=== PATIENT | female | born 1970 | race Caucasian/White ===

== ENCOUNTER 2023-10-19 21:38 | Emergency (ER) | payer SELFPAY ==
[2023-10-19 21:39] VITALS: BMI 25.9
[2023-10-19 21:45] VITALS: BP 147/84
[2023-10-19] MEDS: GlucaGen 1 MG IV (22:15)
--- NOTE | 2023-10-19 22:16 | ED.GENMED ---
History of Present Illness
General
Chief Complaint: Throat Problem
Source: patient and family
Exam Limitations: none
Time Seen by Provider: 10/19/23 22:07
Nursing documentation reviewed up to this point in time: agreed with
Travel History
Have you had any contact with someone who has COVID-19?: No
Do you have any symptoms of coronavirus? Fever > 100 degrees, chills, cough, shortness of breath, sore throat, loss of taste or smell, muscle aches, or headache?: No
History of Present Illness
History of Present Illness:
53-year-old female presents emergency department after eating a piece of chicken that is stuck in her throat. She is not able to tolerate liquids or solids. No respiratory distress. She has not had this happen before, but has a history of GERD.
Past History
Past History
ED Past Medical History: Asthma, Fibromyalgia and GERD
ED Past Surgical History: Gynecological (D&C)
Social History
Tobacco: Smoker
Alcohol: None
Personal: Single
Living: with family
Employment: Disabled
Family History
Family History: Other (No significant)
Review of Systems
Review of Systems
Allergies reviewed?: Yes
All Other Systems: Not applicable
Constitutional: Reports no symptoms
EENT: Reports no symptoms
Respiratory: Reports no symptoms
Cardiac: Reports no symptoms
ABD/GI: Reports other (Chicken stuck in throat)
: Reports no symptoms
Musculoskeletal: Reports no symptoms
Skin: Reports no symptoms
Neurological: Reports no symptoms
Endocrine: Reports no symptoms
Hematologic/Lymphatic: Reports no symptoms
Psychiatric: Reports no symptoms
Phy Exam
Physical Exam
Physical Exam:
Physical Exam
General: Appears uncomfortable, afebrile
Neck: supple. no meningeal signs. normal posterior pharynx
Heart: s1/s2 regular rate and rhythm, no murmur. equal radial
pulses.
HEENT: Pupils equal round reactive to light, EOMI
Lungs: no acute respiratory distress. clear bilaterally
Abdomen: normal bowel sounds. not tender. no CVAT
Neuro: alert and oriented. no focal neurological deficits
Skin: no rash
Psychiatric: well kept. interactive and cooperative
Extremities: no edema.
Course
Orders/Labs/Results
Orders:
Orders
10/19/23 21:58
Glucagon [GlucaGen] 1 mg .ROUTE .STK-MED ONE
10/19/23 22:15
Glucagon [GlucaGen] 1 mg IV NOW STA
Vital Signs
Initial and Last Documented VS:
Initial Vital Signs
Temp
98.7 F
10/19/23 21:41
Last Documented Vital Signs
Temp Pulse Resp BP Pulse Ox
98.7 F 92 18 143/96 98
10/19/23 21:41 10/19/23 22:17 10/19/23 22:17 10/19/23 22:19 10/19/23 22:17
MDM/Problems Addressed
Differential Diagnosis Includes:
Impacted esophageal food bolus, reflux
MDM/Problems Addressed:
53-year-old female with impacted esophageal food bolus. Discussed with Dr. Solano, who will see in ED and take to endoscopy lab.
Chronic conditions affecting care: Other (GERD)
Acute Exacerbation and/or Progression of Chronic Illness: Other
*Pulse Oximetry
Patient hypoxic: no
*EKG
Interpreted by ED Provider?: NA
*Harp Maker Interpretation
Rate: Harp Maker- N/A
*Critical Care Note
Total Time (30-74mins, 75-104mins- exclusive of procedures): Not Applicable
Data Reviewed
Further Testing Considered But Not Given:
Endoscopy not indicated, as patient vomited esophageal food bolus
Patient Management
Discussion with other providers: Controller Mechanic (Gastroenterology, Dr. Solano was to come in, but not necessary at this point as patient did vomit the large piece of chicken)
Escalation/DeEscalation of care consider admission/obs:
Admit not indicated
ED Attending Note
-
Portions of this chart may have been created with voice recognition software.� Occasional wrong word or��sound alike� substitutions may have occurred due to the inherent limitations of voice recognition software.
Discharge Plan
Departure
Patient Disposition: Home (Routine Discharge)
Date of Disposition: 10/19/23
Time of Disposition: 22:30
Patient with high blood pressure during this ER visit?: Yes
Condition: Good
Discharge Problem:
Esophageal obstruction due to food impaction
Instructions: Food Obstruction, BLOOD PRESSURE
Prescriptions:
No Action
montelukast 10 MG tablet
10 mg PO HS
albuterol sulfate [Ventolin HFA] 90 MCG/PUFF HFA aerosol inhaler
1 puff inhalation PRN PRN (Reason: sob)
NAPROXEN
1 - 2 tab PO PRN PRN (Reason: pain)
alprazolam 1 MG tablet
1 mg PO Q6HPRN PRN (Reason: anxiety)
hydrocodone-acetaminophen [Vicodin ES] 1 EACH tablet
1 ea PO PRN PRN (Reason: pain)
cyclobenzaprine 10 MG tablet
10 mg PO HSPRN PRN (Reason: pain)
valacyclovir [Valtrex] 1,000 MG tablet
500 mg PO DAILY
trazodone 150 MG tablet
150 mg PO HS
dextroamphetamine-amphetamine [Adderall XR] 30 MG capsule,extended release 24hr
30 mg PO DAILY
Zantac
1 tab PO BID
furosemide 40 MG tablet
20 mg PO DAILY Qty: 5 0RF
cyclobenzaprine 10 MG tablet
10 mg PO TIDPRN PRN (Reason: Spasm) Qty: 12 0RF
sucralfate 1 GM/10 ML suspension
1 gm PO QID Qty: 10 0RF
Referrals:
Yg Solano MD [Active] - Call in 1-3 days for appt
Interventions
Interventions:
*Risk Screen - Suicide Last Done: 10/19/23 21:44
*General Assessment Last Done: 10/19/23 21:44
*Neglect/Abuse Screening Last Done: 10/19/23 21:44
*ED COVID-19 Vaccine History Last Done: 10/19/23 21:44
ED-EENT Assessment Last Done: 10/19/23 22:25
ED- Pulmonary Assessment Last Done: 10/19/23 22:25
[2023-10-19 22:19] VITALS: BP 143/96
== END 2023-10-19 22:46 | disposition home or self-care (01) ==
LOC: EMR 21:38
PROVIDERS: EMERGENCY PHYSICIAN Emergency Medicine; FAMILY PHYSICIAN Nurse Practitioner Family
DX: K22.2 Esophageal obstruction (principal); T17.228A Food in pharynx causing other injury, initial encounter; W44.F3XA Food entering into or through a natural orifice, initial encounter; R03.0 Elevated blood-pressure reading, without diagnosis of hypertension; M79.7 Fibromyalgia; K21.9 Gastro-esophageal reflux disease without esophagitis; J45.909 Unspecified asthma, uncomplicated; G89.29 Other chronic pain; K76.0 Fatty (change of) liver, not elsewhere classified; D64.9 Anemia, unspecified; F17.200 Nicotine dependence, unspecified, uncomplicated
CPT/HCPCS: 99284; 96374; J1610

== ENCOUNTER → 2023-12-14 13:15 | Outpatient (REF) | payer OTHER, SELFPAY | LOC: RAD 13:15 | PROVIDERS: ATTENDING PHYSICIAN Chiropractor | DX: M99.01 Segmental and somatic dysfunction of cervical region (principal); M99.03 Segmental and somatic dysfunction of lumbar region | CPT/HCPCS: 72050; 72110 ==

== ENCOUNTER → 2024-09-05 08:51 | Outpatient (REF) | payer OTHER, SELFPAY | LOC: HWRAD 08:51 | PROVIDERS: ATTENDING PHYSICIAN Physician Assistant | DX: K76.0 Fatty (change of) liver, not elsewhere classified (principal) | CPT/HCPCS: 76700 ==

== ENCOUNTER → 2024-09-16 08:11 | Outpatient (REF) | payer OTHER, SELFPAY | LOC: RAD 08:11 | PROVIDERS: ATTENDING PHYSICIAN Physician Assistant | DX: R10.11 Right upper quadrant pain (principal) | CPT/HCPCS: 74177; Q9967 ==

== ENCOUNTER → 2024-10-01 12:44 | Outpatient (REF) | payer OTHER, SELFPAY | LOC: HWWDC 12:44 | PROVIDERS: ATTENDING PHYSICIAN Physician Assistant | DX: Z12.31 Encounter for screening mammogram for malignant neoplasm of breast (principal) | CPT/HCPCS: 77063; 77067 ==

== ENCOUNTER 2024-10-03 06:34 | Day surgery (SDC) | payer OTHER, SELFPAY | END 2024-10-03 12:00 | LOC: GI 06:34 | PROVIDERS: ATTENDING PHYSICIAN Student in an Organized Health Care Education/Training Program; FAMILY PHYSICIAN Physician Assistant | DX: R10.13 Epigastric pain (principal); R10.11 Right upper quadrant pain; K44.9 Diaphragmatic hernia without obstruction or gangrene; K29.50 Unspecified chronic gastritis without bleeding; K22.70 Barrett's esophagus without dysplasia | CPT/HCPCS: 43239; 88305; 88342 ==

== ENCOUNTER → 2024-10-07 09:15 | Outpatient (REF) | payer OTHER, SELFPAY | LOC: WDC 09:15 | PROVIDERS: ATTENDING PHYSICIAN Physician Assistant | DX: R92.8 Other abnormal and inconclusive findings on diagnostic imaging of breast (principal) | CPT/HCPCS: 76642 ==

== ENCOUNTER → 2024-10-30 10:10 | Outpatient (REF) | payer OTHER, SELFPAY | LOC: PAVMRI 10:10 | PROVIDERS: ATTENDING PHYSICIAN Student in an Organized Health Care Education/Training Program; FAMILY PHYSICIAN Physician Assistant | DX: K86.9 Disease of pancreas, unspecified (principal) | CPT/HCPCS: 74183; A9575 ==

== ENCOUNTER 2024-11-03 06:23 | Day surgery (SDC) | payer OTHER, SELFPAY | END 2024-11-03 14:25 | disposition home or self-care (01) | LOC: GI 06:23 | PROVIDERS: ATTENDING PHYSICIAN Student in an Organized Health Care Education/Training Program | DX: Z12.11 Encounter for screening for malignant neoplasm of colon (principal); K64.0 First degree hemorrhoids; K57.30 Diverticulosis of large intestine without perforation or abscess without bleeding; D12.4 Benign neoplasm of descending colon; K62.1 Rectal polyp; K63.5 Polyp of colon; Z83.719 Family history of colon polyps, unspecified | CPT/HCPCS: 45385; 45380; 88305 ==

== ENCOUNTER 2025-03-17 06:29 | Day surgery (SDC) | payer OTHER, SELFPAY | END 2025-03-17 07:47 | disposition home or self-care (01) | LOC: GI 06:29 | PROVIDERS: ATTENDING PHYSICIAN Student in an Organized Health Care Education/Training Program; FAMILY PHYSICIAN Physician Assistant | DX: R10.9 Unspecified abdominal pain (principal); K57.30 Diverticulosis of large intestine without perforation or abscess without bleeding; K64.0 First degree hemorrhoids; D12.2 Benign neoplasm of ascending colon; D12.3 Benign neoplasm of transverse colon; K62.1 Rectal polyp; K63.5 Polyp of colon; Z98.890 Other specified postprocedural states | CPT/HCPCS: 45385; 45380; 88305 ==

== ENCOUNTER 2025-07-26 16:09 | Emergency (ER) | payer OTHER, SELFPAY ==
[2025-07-26 16:19] VITALS: BP 135/94
--- NOTE | 2025-07-26 16:24 | ED.GENMED ---
History of Present Illness
General
Chief Complaint: Crisis Evaluation
Source: patient
Exam Limitations: none
Time Seen by Provider: 07/26/25 16:16
History of Present Illness
History of Present Illness:
See MDM
Past History
Past History
ED Past Medical History: Asthma, Fibromyalgia, GERD and Psychiatric
ED Past Surgical History: Gynecological (D&C)
Social History
Tobacco: Smoker
Alcohol: None
Personal: Single
Living: with family
Employment: Disabled
Family History
Family History: Other (No significant)
Phy Exam
Physical Exam
Physical Exam:
See MDM
Course
Orders/Labs/Results
Orders:
Orders
07/26/25 16:22
Crisis Consult Urgent
Reason for Consult: petitioned 302
07/26/25 20:07
Alcohol Urgent
Complete Blood Count/With Diff Urgent
Comprehensive Metabolic Panel Urgent
HCG, Serum Qualitative Screen Urgent
Test Result ONCE
07/26/25 20:08
Urinalysis Reflex To Culture Urgent
Urine Drug Abuse Screen Urgent
Vital Signs
Initial and Last Documented VS:
Initial Vital Signs
Temp Pulse Resp BP Pulse Ox
98.7 F 113 16 135/94 95
07/26/25 16:19 07/26/25 16:19 07/26/25 16:19 07/26/25 16:19 07/26/25 16:19
Last Documented Vital Signs
Temp Pulse Resp BP Pulse Ox
98.7 F 113 16 135/94 95
07/26/25 16:19 07/26/25 17:12 07/26/25 16:19 07/26/25 16:19 07/26/25 16:19
MDM/Problems Addressed
Differential Diagnosis Includes:
Note:
CHIEF COMPLAINT(S)
Evaluation for safety following a call from family regarding mental health concerns.
HISTORY OF PRESENT ILLNESS
The patient is a 55-year-old female with a history of depression diagnosed approximately 13-14 years ago. She reported being sober for 33 years and actively participating in a 12-step program, attending 10 meetings a week with two sponsors. The
patient disclosed family stress as a significant factor, particularly mentioning a strained relationship with her mother following a negative comment. She admitted to feeling liberated after the passing of her father, who was described as a 'bully,'
affecting her well-being. Despite having a history of depression, the patient has not been on antidepressants for six years, based on her doctors assessment and personal belief that they are not necessary. Recent family dynamics led to an
escalation, prompting her son and to call for emergency evaluation, although the patient denies any intent to harm herself or others. She expressed a desire to change her living situation, feeling that her current environment is not
conducive to her personal growth and recovery.
I spoke to the police officers who witnessed a video of the patient putting a knife to her wrist threatening to kill herself. Because of this, police filing a 302
PHYSICAL EXAM
General: Alert, no acute distress.
Skin: Warm, dry.
Head: Normocephalic, atraumatic
Neck: Appears supple, trachea midline.
Eyes, Ears, Nose, Mouth, and Throat: Moist mucous membranes
Cardiovascular: No signs of cyanosis
Respiratory: Respirations are non-labored.
Abdomen: Non-distended
Musculoskeletal: No deformities
Neurological: No focal neurological deficit observed.
Psychiatric: Cooperative, appropriate mood and affect.
CHRONIC MEDICAL CONDITIONS SIGNIFICANTLY AFFECTING CARE
Chronic conditions affecting care include a history of depression.
SOCIAL DETERMINANTS AFFECTING HEALTH
The patient reports significant family stress due to relational conflicts and past familial alcoholism. She is currently living in an environment she feels is not supportive of her recovery, affecting her mental health stability.
SUMMARY OF ENCOUNTER
The patient was evaluated in the emergency department following a family-initiated concern for her safety, despite her reassurance of being stable and without suicidal or homicidal ideation. Her current mood and affect seemed stable, and she
expressed clarity in her goals, such as wanting to be present for significant family events like dancing at her childrens weddings.
Follow-up discussions indicated a potential involvement of a psychiatrist for further evaluation on discharge safety.
DIAGNOSIS
- Depression (F33.9)
- Family conflict (Z63.0)
07/26/25 - 20:08
Patient has agreed to voluntarily admit themselves to the site facility as per discussion with the size worker.
SUMMARY OF ENCOUNTER
The patient presented for a psychiatric evaluation following concerns expressed by family members about her safety. The involvement of the police and a crisis team led to the decision for voluntary admission to a psychiatric facility. Screening
blood work was ordered as part of the transfer process. The patient was otherwise considered stable for the transfer.
DISPOSITION
Voluntary admission to a psychiatric facility.
PLAN
Screening blood work prior to transfer to the psychiatric facility. Ensure stability for transfer.
MEDICAL DECISION MAKING
-Complexity of Data Reviewed: Chronic conditions affecting care include a history of depression, family conflict.
-Diagnosis:
- Depression (F33.9)
- Family conflict (Z63.0)
*Pulse Oximetry
Patient hypoxic: no
*Critical Care Note
Total Time (30-74mins, 75-104mins- exclusive of procedures): Not Applicable
ED Attending Note
-
Portions of this chart may have been created with voice recognition software.� Occasional wrong word or��sound alike� substitutions may have occurred due to the inherent limitations of voice recognition software.
Discharge Plan
Departure
Patient Disposition: Psych Facility
Date of Disposition: 07/26/25
Time of Disposition: 20:09
Discharge Problem:
Depression
Prescriptions:
No Action
montelukast 10 MG tablet
10 mg PO HS
albuterol sulfate [Ventolin HFA] 90 MCG/PUFF HFA aerosol inhaler
1 puff inhalation PRN PRN (Reason: sob)
NAPROXEN
1 - 2 tab PO PRN PRN (Reason: pain)
alprazolam 1 MG tablet
1 mg PO Q6HPRN PRN (Reason: anxiety)
hydrocodone-acetaminophen [Vicodin ES] 1 EACH tablet
1 ea PO PRN PRN (Reason: pain)
cyclobenzaprine 10 MG tablet
10 mg PO HSPRN PRN (Reason: pain)
valacyclovir [Valtrex] 1,000 MG tablet
500 mg PO DAILY
trazodone 150 MG tablet
150 mg PO HS
dextroamphetamine-amphetamine [Adderall XR] 30 MG capsule,extended release 24hr
30 mg PO DAILY
Zantac
1 tab PO BID
furosemide 40 MG tablet
20 mg PO DAILY Qty: 5 0RF
cyclobenzaprine 10 MG tablet
10 mg PO TIDPRN PRN (Reason: Spasm) Qty: 12 0RF
sucralfate 1 GM/10 ML suspension
1 gm PO QID Qty: 10 0RF
Referrals:
Karissa Gaytan PA [Family Provider, Family Practice]
Interventions
Interventions:
*Risk Screen - Suicide Last Done: 07/26/25 16:19
*General Assessment Last Done: 07/26/25 16:19
*Neglect/Abuse Screening Last Done: 07/26/25 16:19
*ED- Fall Risk Assessment Last Done: 07/26/25 19:07
*ED COVID-19 Vaccine History Last Done: 07/26/25 16:19
*ED Influenza Vaccine History Last Done: 07/26/25 16:19
ED-Psychological Assessment Last Done: 07/26/25 16:42
Discharge Date and Time
Print Language: MALAYSIAN
[2025-07-26 16:41] VITALS: BMI 22.3
[2025-07-26 20:25] LABS: Hematocrit 41.2 % (37.0-47.0); Hemoglobin 13.6 g/dL (12.0-16.0); Mean Corp Hgb Conc. 33.0 g/dL (33.0-37.0); Mean Corpuscular Volume 100.0 fL (81.0-99.0); Nucleated Red Blood Cells % 0 %; Platelet Count 305 10^3/uL (130-400); Red Cell Dist. Width 14.6 % (11.5-14.5)
[2025-07-26 20:38] LABS: HCG, Serum Qualitative Screen Negative
[2025-07-26 20:44] LABS: ALT (SGPT) 12 U/L (0-35); AST (SGOT) 22 U/L (14-36); Albumin 4.3 g/dl (3.5-5.0); Alkaline Phosphatase 92 U/L (38-126); Blood Urea Nitrogen 8 mg/dl (7-17); Calcium 9.4 mg/dl (8.4-10.2); Carbon Dioxide 27 mmol/L (22-30); Chloride 105 mmol/L (98-107); Estimated Creatinine Clearance 73 ml/min; Glucose 107 mg/dl (70-99); Potassium 4.0 mmol/L (3.5-5.1); Sodium 136 mmol/L (135-145); Total Protein 6.8 g/dl (6.3-8.2); eGFR > 60.00
== END 2025-07-26 23:00 ==
LOC: EMR 16:09
PROVIDERS: EMERGENCY PHYSICIAN Student in an Organized Health Care Education/Training Program; FAMILY PHYSICIAN Physician Assistant
DX: F32.A Depression, unspecified (principal); J45.909 Unspecified asthma, uncomplicated; M79.7 Fibromyalgia; K21.9 Gastro-esophageal reflux disease without esophagitis; F17.200 Nicotine dependence, unspecified, uncomplicated; Z63.8 Other specified problems related to primary support group
CPT/HCPCS: 99285; 80053; 82077; 84703; 85025